=== PATIENT | female | born 1935 | race Asian ===

== ENCOUNTER → 2018-02-27 | Outpatient (CLI) | payer OTHER | END | disposition home or self-care (01) | LOC: NUCLEAR 11:00 | DX: M81.0 Age-related osteoporosis without current pathological fracture (principal); M85.88 Other specified disorders of bone density and structure, other site ==

== ENCOUNTER 2018-03-21 13:17 | Outpatient (CLI) | payer OTHER | END 2018-03-21 13:25 | disposition home or self-care (01) | LOC: RAD 13:17 | DX: M15.0 Primary generalized (osteo)arthritis (principal); M81.0 Age-related osteoporosis without current pathological fracture ==

== ENCOUNTER 2018-03-22 09:35 | Outpatient (CLI) | payer OTHER | END 2018-03-22 10:03 | disposition home or self-care (01) | LOC: LAB 09:35 | DX: I10 Essential (primary) hypertension (principal); M81.0 Age-related osteoporosis without current pathological fracture ==

== ENCOUNTER → 2019-01-02 08:11 | Outpatient (CLI) | payer OTHER | END | disposition home or self-care (01) | LOC: LAB 08:11 | DX: M81.0 Age-related osteoporosis without current pathological fracture (principal); I10 Essential (primary) hypertension ==

== ENCOUNTER 2019-08-07 08:12 | Outpatient (CLI) | payer OTHER | END 2019-08-07 08:23 | disposition home or self-care (01) | LOC: LAB 08:12 | DX: M81.0 Age-related osteoporosis without current pathological fracture (principal); D51.8 Other vitamin B12 deficiency anemias; I10 Essential (primary) hypertension ==

== ENCOUNTER 2020-02-29 07:38 | Outpatient (CLI) | payer OTHER | END 2020-02-29 07:45 | disposition home or self-care (01) | LOC: LAB 07:38 | PROVIDERS: ATTEND Internal Medicine Rheumatology | DX: I10 Essential (primary) hypertension (principal); E78.01 Familial hypercholesterolemia; R76.0 Raised antibody titer; E67.3 Hypervitaminosis D ==

== ENCOUNTER 2020-02-29 10:10 | Outpatient (CLI) | payer OTHER | END 2020-02-29 10:15 | disposition home or self-care (01) | LOC: NUCLEAR 10:10 | PROVIDERS: ATTEND Internal Medicine Rheumatology | DX: M81.0 Age-related osteoporosis without current pathological fracture (principal); M85.88 Other specified disorders of bone density and structure, other site ==

== ENCOUNTER → 2020-08-31 09:39 | Outpatient (CLI) | payer OTHER | END | disposition home or self-care (01) | LOC: LAB 09:39 | PROVIDERS: ATTEND Internal Medicine Rheumatology | DX: M85.89 Other specified disorders of bone density and structure, multiple sites (principal); I10 Essential (primary) hypertension ==

== ENCOUNTER 2021-02-22 09:32 | Outpatient (CLI) | payer OTHER | END 2021-02-22 09:34 | disposition home or self-care (01) | LOC: LAB 09:32 | PROVIDERS: ATTEND Internal Medicine Rheumatology | DX: I10 Essential (primary) hypertension (principal); M81.0 Age-related osteoporosis without current pathological fracture ==

== ENCOUNTER 2022-03-01 09:03 | Outpatient (CLI) | payer OTHER | END 2022-03-01 09:06 | disposition home or self-care (01) | LOC: NUCLEAR 09:03 | PROVIDERS: ATTEND Internal Medicine Rheumatology | DX: M81.0 Age-related osteoporosis without current pathological fracture (principal) ==